=== PATIENT | male | born 1960 | race Caucasian/White ===

== ENCOUNTER → 2017-08-26 | Outpatient (CLI) | payer OTHER | END | disposition home or self-care (01) | LOC: KCIC 14:28 | DX: R93.8 Abnormal findings on diagnostic imaging of other specified body structures (principal); J84.10 Pulmonary fibrosis, unspecified; Z87.01 Personal history of pneumonia (recurrent) | CPT/HCPCS: 71046 ==

== ENCOUNTER → 2019-03-26 | Outpatient (CLI) | payer OTHER ==
--- NOTE | 2019-03-26 16:33 | KCIC ---
Examination: THYROID ULTRASOUND History: Lump at the inferior right neck Comparison/Correlation: None Findings: Thyroid ultrasound exam was performed. Right thyroid lobe measures 5.823 x 2.2 cm x 2.3 cm. Left thyroid lobe motor is 4.2 cm x 1.1 cm x 1.3 cm. Normal flow involving the left thyroid lobe is evident on color Doppler imaging. Thyroid isthmus measures up to 0.5 cm anteroposteriorly. At the right thyroid lobe mid to lower pole level, there is a 3.5 cm x 2.3 cm x 2.4 cm tall lobulated heterogeneous hyperechoic mass with flow within it. Small calcifications within this mass also noted. This mass corresponds to the site of palpable abnormality. At the left thyroid lobe inferior pole, there is a small well-circumscribed mass measuring less than 0.4 cm diameter. Impression: TI-RADS category 4-moderately suspicious. Fine needle aspiration is recommended for the dominant right thyroid lobe mass. Electronically signed by: Abhishke Bearden MD (03/26/2019 4:30 PM) [facility]
== END | disposition home or self-care (01) ==
LOC: KCIC US 15:20
PROVIDERS: ATTEND Family Medicine
DX: R22.1 Localized swelling, mass and lump, neck (principal); E07.89 Other specified disorders of thyroid
CPT/HCPCS: 76536

== ENCOUNTER → 2019-04-07 | Outpatient (CLI) | payer OTHER ==
--- NOTE | 2019-04-07 14:55 | RAD ---
US GUID NDL PLACE/ASPI/BX Clinical Indication: Right thyroid nodule. Comparison: March 26, 2019. Procedure: The risks, alternatives, and benefits of the procedure are discussed with the patient. Written informed consent is obtained. A time out procedure is performed. Neck prepped and draped in normal sterile fashion. 1% lidocaine was injected into the skin and soft tissue along route to the nodule of the thyroid. 22-gauge needle was utilized for aspiration with to and fro motion. After the initial fine-needle aspiration was performed, there was development of hematoma overlying the nodule. The thyroid nodule was hypervascular. 2 additional passes were performed without expansion of the hematoma. Pathology was available to check adequacy of sample. Postprocedure ultrasound demonstrated hematoma within the soft tissues overlying the right thyroid nodule stable in size. Hemostasis is achieved. The patient tolerated the procedure well. The patient did not experience any difficulty breathing or swallowing. There is some right neck discomfort and tightness. Patient was directed to seek medical attention and due to the ER if worsening symptoms or trouble breathing. IMPRESSION: 1. Ultrasound guided fine needle aspiration of a right thyroid nodule. 2. Small postprocedural hematoma overlying the nodule due to hypervascular thyroid nodule. Electronically signed by: Dnonie Schaefer DO (04/07/2019 2:52 PM) [facility]
--- NOTE | 2019-04-09 12:07 | PATHOLOGY ---
Note [facility] Accession Number: [id number] TESTS RESULT FLAG UNITS REF RANGE LAB Clinician Provided Cytology Information C6 Unknown Storage/container code(s) Source: RT THYROID DIAGNOSIS: RT THYROID B[place]ESDA CATEGORY III. ATYPIA OF UNDETERMINED SIGNIFICANCE. ABUNDANT FOLLICULAR CELLS WITH MACRO AND MICROFOLLICLES, SCANT COLLOID, AND FOCAL NUCLEAR ATYPIA AND GROOVES. DIFFERENTIAL DIAGNOSIS INCLUDES ADENOMATOUS NODULE AND FOLLICULAR NEOPLASM. THE RNA VIAL IS BEING SENT FOR RNA TESTING. CASE IS ALSO EXAMINED BY DR. CEVALLOS, CYTOPATHOLOGIST. THIS INTERPRETATION INCLUDES EVALUATION OF A CELL BLOCK. Pathologist ICD10: 02 R89.6 Signed out by: Sandro Ling MD, Pathologist NPI- [id number] Performed by: Guerda Carson, Actor Understudy ([facility]) Gross description: 01 30ML, REDDISH PINK, CLEAR /LCS 06/09/1840 0000 Local FLAG LEGEND: L-Low Normal,H-High Normal,LL-Alert Low,HH-Alert High <-Panic Low,>-Panic High,A-Abnormal,AA-Critical Abnormal Performed at: [facility] [address] [place] [address] [address] [place] [address] Buster Mireles MD, [address] [facility] [address] [place] [address] Sandro Ling MD, Specimen Comment: A courtesy copy of this report has been sent to [phone], [phone] Specimen Comment: [id number], Specimen Comment: Report sent to ,DR BELL / DR BILLY Specimen Comment: A duplicate report has been generated due to demographic updates. Performed at: [address] [facility], [place] [id number] MD Buster Mireles MD Phone: [phone]
== END | disposition home or self-care (01) ==
LOC: US 13:35
PROVIDERS: ATTEND Surgery
DX: E04.1 Nontoxic single thyroid nodule (principal)
CPT/HCPCS: 10005; 60300; 76942; 88173; 88305